=== PATIENT | female | born 2000 | race African-American/Black ===

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

== ENCOUNTER 2021-01-18 07:35 | Emergency (ER) | payer OTHER ==
[~2021-01-18] VITALS: Ht 165.1 cm; Wt 86.1 kg
[~2021-01-18 07:35] MED LIST changes: +ZOFR4TAB16 PO
[2021-01-18] MEDS ORDERED: LORazepam 2 MG/ML VIAL IV STA (08:18)
[2021-01-18] MEDS ORDERED: LORazepam 2 MG/ML VIAL As Ordered ONE (08:18)
[2021-01-18] MEDS ORDERED: levETIRAcetam INJection 1,500 MG in D5W 100 ML IV ONE (08:20)
[2021-01-18 08:25] LABS: BASO # 0.1 10^3/uL (0.0-0.2); BASO % 1.3 % (0.0-1.0); EOS # 0.1 10^3/uL (0.0-0.5); EOS % 2.6 % (0.0-3.0); HEMATOCRIT 42.3 % (36.0-47.0); HEMOGLOBIN 13.4 g/dl (12.0-15.5); LYMPH # 2.3 10^3/uL (1.5-5.0); LYMPH % 42.3 % (24.0-44.0); MEAN CORPUSCULAR HEMOGLOBIN 26.8 pg (27.0-33.0); MEAN CORPUSCULAR HGB CONC 31.7 g/dl (32.0-36.5); MEAN CORPUSCULAR VOLUME 84.6 fl (80.0-96.0); MONO # 0.4 10^3/uL (0.0-0.8); MONO % 7.5 % (2.0-8.0); NEUTROPHILS # 2.5 10^3/uL (1.5-8.5); NEUTROPHILS % 46.1 % (36.0-66.0); PLATELET COUNT, AUTOMATED 347 10^3/uL (150-450); WHITE BLOOD COUNT 5.3 10^3/uL (4.0-10.0)
[2021-01-18 09:02] LABS: ALBUMIN 3.8 GM/DL (3.2-5.2); ALT/SGPT 173 U/L (12-78); BILIRUBIN,DIRECT < 0.1 MG/DL (0.0-0.2); BILIRUBIN,TOTAL 0.1 MG/DL (0.2-1.0); SALICYLATE LEVEL < 1.7 MG/DL (5.0-30.0); TOTAL PROTEIN 7.5 GM/DL (6.4-8.2)
[2021-01-18 09:03] LABS: ACETAMINOPHEN LEVEL < 2.0 UG/ML (10.0-30.0); ETHYL ALCOHOL (ETHANOL) < 0.003 % (0.000-0.010)
--- NOTE | 2021-01-18 09:06 | REP ---
INDICATION: seizure COMPARISON: None. TECHNIQUE: Axial noncontrast images from the skull base to the vertex with coronal reformations. This CT examination was performed using the following dose reduction techniques: Automated exposure control, adjustment of mA and/or kv according to the patient's size, and use of iterative reconstruction technique. FINDINGS: The ventricles, sulci, and cisterns are normal in position and appearance. Cortes-white differentiation is maintained. No acute intracranial hemorrhage, mass/mass effect, pathology or trauma/injury. No evidence for acute infarction. No extra-axial fluid collection. Calvarium is intact. Paranasal sinuses and mastoid air cells are clear. IMPRESSION: Normal noncontrast head CT. No evidence for acute intracranial pathology or trauma/injury. <Electronically signed by Scott Tang > 01/18/21 0902
[2021-01-18 09:35] LABS: AMPHETAMINES LEVEL URINE NEGATIVE (NEGATIVE); BARBITURATES URINE NEGATIVE (NEGATIVE); BENZODIAZEPINES URINE NEGATIVE (NEGATIVE); CANNABINOIDS URINE NEGATIVE (NEGATIVE); COCAINE METABOLITE URINE NEGATIVE (NEGATIVE); METHADONE URINE NEGATIVE (NEGATIVE); OPIATES URINE NEGATIVE (NEGATIVE); PHENCYCLIDINE URINE NEGATIVE (NEGATIVE)
--- NOTE | 2021-01-18 09:58 | REP ---
INDICATION: elev lft COMPARISON: None. TECHNIQUE: Real time augustine scale ultrasound examination using curved array transducer. FINDINGS: Liver is normal in contour, size, and echogenicity without focal hepatic lesions identified. Pancreas is incompletely evaluated due to interposed bowel gas. The gallbladder is normal and without gallstones, wall thickening, or pericholecystic fluid. No biliary ductal dilatation is appreciated and the common bile duct measures 3 mm diameter. Right kidney is normal in reniform shape without hydronephrosis and measures 10 x 9 x 6.7 x 4.0 cm. No ascites in the visualized right upper quadrant. IMPRESSION: Normal limited right upper quadrant ultrasound <Electronically signed by Scott Tang > 01/18/21 0979
[2021-01-18] MEDS ORDERED: NS 1,000 ML IV ONE (12:45)
[2021-01-18 15:14] VITALS: BP 121/79
[2021-01-18] MEDS ORDERED: KEPP1TAB PO (15:19)
[2021-01-19] MEDS ORDERED: MIDOTAB PO (14:56)
[2021-01-19] MEDS ORDERED: MIRE1IUD PV (14:56)
[2021-01-19] MEDS ORDERED: KEPP1TAB PO (14:57)
--- NOTE | 2021-01-19 20:31 | ECGEPIP ---
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
== END 2021-01-18 15:32 | disposition home or self-care (01) ==
LOC: EDBD 07:35 → M ED 07:35
DX: R56.9 Unspecified convulsions (principal)
CPT/HCPCS: 70450; 76705; 80047; 80076; 80143; 80307; 82077; 84443; 84702; 85025; 93005; 93041; 96361; 96374; 96375; 99285; J1953; J2060

== ENCOUNTER 2021-01-19 12:24 | Inpatient (IN) | payer OTHER ==
[~2021-01-19] VITALS: Ht 165.1 cm; Wt 75.6 kg
[~2021-01-19 12:24] MED LIST changes: +KEPP1TAB PO
[2021-01-19 13:34] LABS: BASO # 0.1 10^3/uL (0.0-0.2); BASO % 1.1 % (0.0-1.0); EOS # 0.1 10^3/uL (0.0-0.5); EOS % 1.9 % (0.0-3.0); HEMATOCRIT 42.7 % (36.0-47.0); HEMOGLOBIN 13.3 g/dl (12.0-15.5); LYMPH # 1.9 10^3/uL (1.5-5.0); LYMPH % 36.3 % (24.0-44.0); MEAN CORPUSCULAR HEMOGLOBIN 26.4 pg (27.0-33.0); MEAN CORPUSCULAR HGB CONC 31.1 g/dl (32.0-36.5); MEAN CORPUSCULAR VOLUME 84.9 fl (80.0-96.0); MONO # 0.5 10^3/uL (0.0-0.8); MONO % 9.4 % (2.0-8.0); NEUTROPHILS # 2.7 10^3/uL (1.5-8.5); NEUTROPHILS % 51.1 % (36.0-66.0); PLATELET COUNT, AUTOMATED 295 10^3/uL (150-450); RED BLOOD COUNT 5.03 10^6/uL (4.00-5.40); WHITE BLOOD COUNT 5.2 10^3/uL (4.0-10.0)
[2021-01-19 14:01] LABS: ALBUMIN 3.8 GM/DL (3.2-5.2); ALT/SGPT 158 U/L (12-78); BILIRUBIN,TOTAL 0.2 MG/DL (0.2-1.0); BLOOD UREA NITROGEN 10 MG/DL (7-18); CALCIUM LEVEL 9.5 MG/DL (8.5-10.1); CARBON DIOXIDE LEVEL 24 MEQ/L (21-32); CHLORIDE LEVEL 109 MEQ/L (98-107); CREATININE FOR GFR 0.76 MG/DL (0.55-1.30); GLUCOSE, FASTING 96 MG/DL (70-100); POTASSIUM SERUM 3.8 MEQ/L (3.5-5.1); SODIUM LEVEL 139 MEQ/L (136-145); TOTAL PROTEIN 7.3 GM/DL (6.4-8.2)
--- NOTE | 2021-01-19 14:04 | REP ---
INDICATION: seizure vs syncpoep COMPARISON: 01/18/2021 TECHNIQUE: Axial noncontrast images from the skull base to the vertex with coronal reformations. This CT examination was performed using the following dose reduction techniques: Automated exposure control, adjustment of mA and/or kv according to the patient's size, and use of iterative reconstruction technique. FINDINGS: The ventricles, sulci, and cisterns are normal in position and appearance. Cortes-white differentiation is maintained. No acute intracranial hemorrhage, mass/mass effect, pathology or trauma/injury. No evidence for acute infarction. No extra-axial fluid collection. Calvarium is intact. Paranasal sinuses and mastoid air cells are clear. IMPRESSION: Normal noncontrast head CT. No evidence for acute intracranial pathology or trauma/injury. <Electronically signed by Scott Tang > 01/19/21 1400
[2021-01-19 14:06] LABS: AMPHETAMINES LEVEL URINE NEGATIVE (NEGATIVE); BARBITURATES URINE NEGATIVE (NEGATIVE); BENZODIAZEPINES URINE NEGATIVE (NEGATIVE); CANNABINOIDS URINE NEGATIVE (NEGATIVE); COCAINE METABOLITE URINE NEGATIVE (NEGATIVE); METHADONE URINE NEGATIVE (NEGATIVE); OPIATES URINE NEGATIVE (NEGATIVE); PHENCYCLIDINE URINE NEGATIVE (NEGATIVE)
[2021-01-19] MEDS ORDERED: MIDOTAB PO (14:56)
[2021-01-19] MEDS ORDERED: MIRE1IUD PV (14:56)
[2021-01-19] MEDS ORDERED: KEPP1TAB PO (14:57)
[2021-01-19 15:08] LABS: PROLACTIN 14.1 NG/ML
[2021-01-19] MEDS ORDERED: ACETAMINOPHEN 500 MG TAB PO PRN (15:25)
[2021-01-19 15:47] LABS: RSV AMPLIFICATION NEGATIVE (NEGATIVE)
[2021-01-19 16:28] LABS: LDH LACTATE DEHYDROGENASE 217 U/L (84-246)
[2021-01-19] MEDS ORDERED: ONDANSETRON 4MG/2ML VIAL IV PRN (17:25)
--- NOTE | 2021-01-19 17:41 | HPEPDOC ---
[facility] Medical History & Physical Date of Admission Jan 19, 2021 Date of Service: Jan 19, 2021 Attending Physician: Antionette Chand MD History and Physical CHIEF COMPLAINT: Seizure HISTORY OF PRESENT ILLNESS: Patient is a 20-year-old female with past medical history of questionable seizures diagnosed 01/18/2021 who returns to [facility] emergency room with questionable seizure-like activity from home. The patient was seen just in our ER on 01/18/2021 for questionable generalized seizure and sent home with Keppra by mouth twice a day. The patient states she went home and took her Keppra dose last evening. This morning the patient states she felt lightheaded and dizzy and had increased weakness. Her boyfriend said she dropped back onto the bed. He described her as having shaking all over, unresponsive to him along with her eyes rolling into the back of her head. There was no documented loss of bowel or bladder, increased confusion when she awoke 3 minutes later, tongue biting. The patient came to the emergency room to be further evaluated. In the emergency room the patient would not making the ER provider. There was a high suspicion for pseudoseizure today as well as 01/18/2021. The patieNT had a witnessed event in front of the ER provider today and when the ER provider pulled back on her fingernails she withdrew her with pain and glared at the ER provider, she would not talk to her at all. The patient was sent for CT scan which was ultimately negative but then she had episode with her eyes rolling back into her head for less than 1 minutes. The ER provider came and again tested her fingernails she withdrew her hand. UDS was negative, labs are unremarkable aside from some mild transaminitis. On my exam in the emergency room the patient rolled her eyes the back of the head, when attempted to move her hand above her head every time on both sides, the patient would drop down to the side without hitting her face. She had no post ictal episodes and responded to me almost immediately. I asked her if she was doing this for attention and I also asked if she was going through a lot of stress at home. Her significant other at the bedside said yes she was. The case was discussed with Dr. Khan and was the neurologist that spoke with the ER provider 01/18/21 as well. He was high suspicious for pseudoseizures, possibly malingering as he had said that after her discharge from the ER 01/18/21 the patient had called his office requesting a out of work notice for several days She had decided to leave AGAINST MEDICAL ADVICE after I had seen her on 01/19/2021 but later changed her mind to be admitted. The patient will be admitted for seizure versus pseudoseizures requiring additional workup. REVIEW OF SYSTEMS: Neg except mentioned above PAST MEDICAL HISTORY: endometriosis seizure vs. pseudoseizure PAST SURGICAL HISTORY: None FAMILY HISTORY: Father: ERIN. alive Mother: DM, HTN. Alive SOCIAL HISTORY: Denies smoking, alcohol or drug use. 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 Follows with OB clinic only. She is a full code. ALLERGIES: Please see below. HOME MEDICATIONS: Please see below. PHYSICAL EXAMINATION: VS: Please see below CONSTITUTIONAL: No acute distress, resting comfortably, AAO x 3 EYES: PERRLA, EOM intact HENT, MOUTH: Normocephalic, atraumatic, moist mucous membranes NECK: SUPPLE, no JVD, no lymphadenopathy, no carotid bruit CV: Regular rate and rhythm, S1S2 normal, no murmurs/rubs/gallops RESPIRATORY: Clear to auscultation bilaterally, no rales/rhonchi/wheezes GI: BS positive in 4 quadrants, soft, nontender, nondistended, no rebound or guarding, no organomegaly : Deferred MUSCULOSKELETAL: Normal ROM. No cyanosis, clubbing, swelling, joint deformity, extremity edema INTEGUMENTARY: Intact, no rashes, no lesions, no erythema NEUROLOGIC: Cranial Nerves II-XII are intact, no focal deficits PSYCHIATRIC: Flat LABORATORY DATA: Please see below IMAGING: CT head: Normal noncontrast head CT. No evidence for acute intracranial pathology or trauma/injury. F/u EEG ASSESSMENT: 20-year-old female with past medical history of endometriosis, questionable seizures diagnosed 01/18/2021 admitted for seizure disorder vs. pseudoseizures. . PLAN: Seizures vs. pseudoseizure -No documented history prior to 01/18/21 -? pseudoseizure as exams during seizures not traditional with seizure behaviors, no post-ictal phase, withdrawls from pain with seizures, does not allow hand/arm to fall on face on all evaluations during these episodes-instead falls to side -CT head neg -States to have taken keppra she was discharged with on 01/18/21 -Ordered EEG, discussed case with neurology who was also suspicious of psych cause/malingering -Will order neuro checks, seizure precautions, EEG -Keppra BID -If suspicion remains for pseudoseizure or w/u neg, psych consult to be obtained Endometriosis -F/u o/p DVT px -Teds, SCDs since patient states she currently bleeds daily vaginally DISPOSITION: Admitted under observation status. Plan is discharge home when medically improved. Consider psych consult. Vital Signs Vital Signs Date Time Temp Pulse Resp B/P (MAP) Pulse Ox O2 Delivery O2 Flow Rate FiO2 01/19/21 15:54 68 100 01/19/21 15:45 117/68 (84) 01/19/21 12:39 97.8 14 Laboratory Data Labs 24H Laboratory Tests 2 01/19/21 12:55: Immature Granulocyte % (Auto) 0.2, Neutrophils (%) (Auto) 51.1, Lymphocytes (%) (Auto) 36.3, Monocytes (%) (Auto) 9.4H, Eosinophils (%) (Auto) 1.9, Basophils (%) (Auto) 1.1H, Neutrophils # (Auto) 2.7, Lymphocytes # (Auto) 1.9, Monocytes # (Auto) 0.5, Eosinophils # (Auto) 0.1, Basophils # (Auto) 0.1, Nucleated Red Blood Cells % (auto) 0.0, Anion Gap 6L, Calcium Level 9.5, Total Bilirubin 0.2#, Aspartate Amino Transf (AST/SGOT) 64H, Alanine Aminotransferase (ALT/SGPT) 158H, Alkaline Phosphatase 118H, Lactate Dehydrogenase 217, Total Protein 7.3, Albumin 3.8, Albumin/Globulin Ratio 1.1L, Prolactin 14.1, Urine Opiates Screen NEGATIVE, Urine Methadone Screen NEGATIVE, Urine Barbiturates Screen NEGATIVE, Urine Phencyclidine Screen NEGATIVE, Urine Amphetamines Screen NEGATIVE, Urine Benzodiazepines Screen NEGATIVE, Urine Cocaine Metabolite Screen NEGATIVE, Urine Cannabinoids Screen NEGATIVE 01/19/21 13:02: POC Beta HCG, Quantitative < 5.0 01/19/21 14:41: Coronavirus (COVID-19)(PCR) NEGATIVE, Influenza Type A (RT-PCR) NEGATIVE, Influenza Type B (RT-PCR) NEGATIVE, Respiratory Syncytial Virus (PCR) NEGATIVE CBC/BMP Laboratory Tests 01/19/21 12:55 Home Medications Scheduled Levetiracetam (Keppra) 500 Mg Tablet, 500 MG PO BID Levonorgestrel (Mirena) 1 Each Iud, 1 IUD PV ASDIRECTED Scheduled PRN Acetaminophen/Pyrilamine/Caff (Midol Caplet) 1 Each Tablet, 1 EACH PO for PAIN Allergies Coded Allergies: No Known Allergies (Verified Allergy, Unknown, 01/19/21) A-FIB/CHADSVASC A-FIB History Current/History of A-Fib/PAF?: No Current PO Anticoag Therapy: No Age/Risk Factor Scoring CHADSVASC: CHADSVASC Response (Comments) Value Age Risk Factor Age < 65 years old 0 Gender Risk Factor Female 1 Hx of CHF No 0 Hx of HTN No 0 Hx of Stroke/TIA/or VTE No 0 Hx of Diabetes No 0 Hx of Vascular Disease No 0 Total 1 Treatment Treatment ordered: Other Other anticoagulant ordered: scd Antionette Chand MD Jan 19, 2021 17:41
[2021-01-19 18:02] VITALS: BP 130/78
[2021-01-19 18:10] LABS: PROTHROMBIN TIME 13.4 SECONDS (12.5-14.3)
[2021-01-19 18:11] LABS: PARTIAL THROMBOPLASTIN TIME 27.6 SECONDS (24.2-38.5)
[2021-01-19] MEDS: levETIRAcetam 250MG TABLET (KEPPRA) PO SCH (20:43)
--- NOTE | 2021-01-19 20:57 | ECGEPIP ---
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
[2021-01-19] MEDS ORDERED: levETIRAcetam 250MG TABLET (KEPPRA) PO SCH (21:00)
[2021-01-19 22:00] VITALS: BP 124/66
[2021-01-20] MEDS ORDERED: PERCOCET 5MG/325MG TAB PO ONE (03:15)
[2021-01-20] MEDS ORDERED: IBUPROFEN 600MG TAB PO ONE (03:45)
[2021-01-20 06:00] VITALS: BP 120/66
[2021-01-20 06:00] LABS: HEMATOCRIT 41.5 % (36.0-47.0); HEMOGLOBIN 13.3 g/dl (12.0-15.5); MEAN CORPUSCULAR HEMOGLOBIN 26.7 pg (27.0-33.0); MEAN CORPUSCULAR VOLUME 83.2 fl (80.0-96.0); PLATELET COUNT, AUTOMATED 356 10^3/uL (150-450); RED BLOOD COUNT 4.99 10^6/uL (4.00-5.40); WHITE BLOOD COUNT 6.9 10^3/uL (4.0-10.0)
[2021-01-20 06:32] LABS: ALBUMIN 3.8 GM/DL (3.2-5.2); ALT/SGPT 133 U/L (12-78); BILIRUBIN,TOTAL 0.3 MG/DL (0.2-1.0); BLOOD UREA NITROGEN 13 MG/DL (7-18); CALCIUM LEVEL 9.4 MG/DL (8.5-10.1); CARBON DIOXIDE LEVEL 25 MEQ/L (21-32); CHLORIDE LEVEL 107 MEQ/L (98-107); CREATININE FOR GFR 0.76 MG/DL (0.55-1.30); GLUCOSE, FASTING 95 MG/DL (70-100); POTASSIUM SERUM 4.3 MEQ/L (3.5-5.1); SODIUM LEVEL 139 MEQ/L (136-145); TOTAL PROTEIN 7.3 GM/DL (6.4-8.2)
[2021-01-20] MEDS: levETIRAcetam 250MG TABLET (KEPPRA) PO SCH (08:55)
[2021-01-20] MEDS ORDERED: ENOXAPARIN 40MG/0.4ML SYRINGE (J1650 PER 10MG) SC SCH ×2 (09:00)
[2021-01-20 14:30] VITALS: BP 129/79
[2021-01-20 14:35] VITALS: BP 127/78
[2021-01-20 14:40] VITALS: BP 125/74
--- NOTE | 2021-01-20 15:03 | DS.PDOC ---
Discharge Summary General Date of Admission Jan 19, 2021 at 17:22 Date of Discharge 01/20/21 Attending Physician: Antionette Chand MD Discharge Summary HISTORY OF PRESENT ILLNESS: Patient is a 20-year-old female with past medical history of questionable seizures diagnosed 01/18/2021 who returns to [facility] emergency room with questionable seizure-like activity from home. The patient was seen just in our ER on 01/18/2021 for questionable generalized seizure and sent home with Keppra by mouth twice a day. The patient states she went home and took her Keppra dose last evening. This morning the patient states she felt lightheaded and dizzy and had increased weakness. Her boyfriend said she dropped back onto the bed. He described her as having shaking all over, unresponsive to him along with her eyes rolling into the back of her head. There was no documented loss of bowel or bladder, increased confusion when she awoke 3 minutes later, tongue biting. The patient came to the emergency room to be further evaluated. In the emergency room the patient would not making the ER provider. There was a high suspicion for pseudoseizure today as well as 01/18/2021. The patieNT had a witnessed event in front of the ER provider today and when the ER provider pulled back on her fingernails she withdrew her with pain and glared at the ER provider, she would not talk to her at all. The patient was sent for CT scan which was ultimately negative but then she had episode with her eyes rolling back into her head for less than 1 minutes. The ER provider came and again tested her fingernails she withdrew her hand. UDS was negative, labs are unremarkable aside from some mild transaminitis. On my exam in the emergency room the patient rolled her eyes the back of the head, when attempted to move her hand above her head every time on both sides, the patient would drop down to the side without hitting her face. She had no post ictal episodes and responded to me almost immediately. I asked her if she was doing this for attention and I also asked if she was going through a lot of stress at home. Her significant other at the bedside said yes she was. The case was discussed with Dr. Khan and was the neurologist that spoke with the ER provider 01/18/21 as well. He was high suspicious for pseudoseizures, possibly malingering as he had said that after her discharge from the ER 01/18/21 the patient had called his office requesting a out of work notice for several days She had decided to leave AGAINST MEDICAL ADVICE after I had seen her on 01/19/2021 but later changed her mind to be admitted. The patient will be admitted for seizure versus pseudoseizures requiring additional workup. HOSPITAL COURSE: Patient complained of some dizziness in the morning on 01/20/2021. She was ambulated without any issues and orthostatics were negative. EEG was performed and will likely not be red for several days. Decision was made to discharge home with follow-up with neurology on Keppra twice a day at prior dose. At the time of discharge there was no complaints of chest pain, increased shortness of breath, nausea, vomiting. REVIEW OF SYSTEMS: Neg except mentioned above PAST MEDICAL HISTORY: endometriosis seizure vs. pseudoseizure PAST SURGICAL HISTORY: None FAMILY HISTORY: Father: ERIN. alive Mother: DM, HTN. Alive SOCIAL HISTORY: Denies smoking, alcohol or drug use. 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 Follows with OB clinic only. She is a full code. ALLERGIES: Please see below. HOME MEDICATIONS: Please see below. PHYSICAL EXAMINATION: VS: Please see below CONSTITUTIONAL: No acute distress, resting comfortably, AAO x 3 EYES: PERRLA, EOM intact HENT, MOUTH: Normocephalic, atraumatic, moist mucous membranes NECK: SUPPLE, no JVD, no lymphadenopathy, no carotid bruit CV: Regular rate and rhythm, S1S2 normal, no murmurs/rubs/gallops RESPIRATORY: Clear to auscultation bilaterally, no rales/rhonchi/wheezes GI: BS positive in 4 quadrants, soft, nontender, nondistended, no rebound or guarding, no organomegaly : Deferred MUSCULOSKELETAL: Normal ROM. No cyanosis, clubbing, swelling, joint deformity, extremity edema INTEGUMENTARY: Intact, no rashes, no lesions, no erythema NEUROLOGIC: Cranial Nerves II-XII are intact, no focal deficits PSYCHIATRIC: Flat LABORATORY DATA: Please see below IMAGING: CT head: Normal noncontrast head CT. No evidence for acute intracranial pathology or trauma/injury. F/u EEG as o/p ASSESSMENT: 20-year-old female with past medical history of endometriosis, questionable seizures diagnosed 01/18/2021 admitted for seizure disorder vs. pseudoseizures. . PLAN: Seizures vs. pseudoseizure -No seizure activity overnight, neurologically intact -No documented history prior to 01/18/21 -? pseudoseizure as exams during seizures not traditional with seizure behaviors, no post-ictal phase, withdrawls from pain with seizures, does not allow hand/arm to fall on face on all evaluations during these episodes-instead falls to side -CT head neg -F/u EEG as o/p, has new patient appt with neurology in [place] already scheduled. -Keppra BID -If suspicion remains for pseudoseizure or w/u neg, psych consult recommended Endometriosis -F/u o/p DISPOSITION: Discharged home today to f/u with neurology as o/p TIME SPENT ON DISCHARGE: 35 minutes. Vital Signs/I&Os Vital Signs Date Time Temp Pulse Resp B/P (MAP) Pulse Ox O2 Delivery O2 Flow Rate FiO2 01/20/21 14:40 96 125/74 (91) 01/20/21 06:00 98.6 18 98 01/19/21 18:02 Room Air I&O- Last 24 Hours up to 6 AM 01/20/21 06:00 Intake Total 960 ml Output Total 500 ml Balance 460 ml Laboratory Data Labs 24H Laboratory Tests 2 01/19/21 17:42: Prothrombin Time 13.4, Prothromb Time International Ratio 1.00, Activated Partial Thromboplast Time 27.6 01/20/21 05:36: Nucleated Red Blood Cells % (auto) 0.0, Anion Gap 7L, Calcium Level 9.4, Total Bilirubin 0.3, Aspartate Amino Transf (AST/SGOT) 43H, Alanine Aminotransferase (ALT/SGPT) 133H, Alkaline Phosphatase 121H, Total Protein 7.3, Albumin 3.8, Albumin/Globulin Ratio 1.1L CBC/BMP Laboratory Tests 01/20/21 05:36 Discharge Medications Scheduled Levetiracetam (Keppra) 500 Mg Tablet, 500 MG PO BID, (Reported) Levonorgestrel (Mirena) 1 Each Iud, 1 IUD PV ASDIRECTED, (Reported) Scheduled PRN Acetaminophen/Pyrilamine/Caff (Midol Caplet) 1 Each Tablet, 1 EACH PO for PAIN, (Reported) Allergies Coded Allergies: No Known Allergies (Verified Allergy, Unknown, 01/19/21) Antionette Chand MD Jan 20, 2021 15:03
--- NOTE | 2021-01-21 17:20 | EEG ---
ELECTROENCEPHALOGRAM DATE: 01/20/2021 DIAGNOSIS: Seizure versus pseudoseizure. EEG# [id number]. REFERRING PHYSICIAN: Antionette Chand M.D. HISTORY: Patient is a 20-year-old female who was admitted at [facility] due to episode of seizure-like activity. These episodes are not accompanied by postictal phase and typical seizure activity. The patient withdraws from pain during her episode. This EEG was done to rule out epileptic potential. She is currently taking Keppra, Lovenox, Percocet, etc. TECHNICAL DESCRIPTION: This digital EEG was recorded by 21-scalp, ear, and two EKG electrodes and was reviewed in bipolar and referential montages following reformatting in 10-20 international electrode placement system. INTERPRETATION: Patient was noted to be in awake and drowsy states during this EEG. Resting and awake background rhythm consisted of well-formed posterior dominant rhythm with anterior-posterior gradient comprising of 10 Hz alpha activity measuring 15-40 microvolts in amplitude, which was symmetric and reactive to eye opening. Attenuation of posterior dominant rhythm was seen during transition into drowsiness. Anteriorly low voltage and mixed frequency activity was noted. Stage 1 and 2 sleep were reviewed and were symmetric bilaterally. Hyperventilation could not be performed. Photic stimulation remained unremarkable. EKG revealed normal sinus rhythm. An episode was reported as twitching, which was only accompanied by electrode and motion artifact in the left posterior temporal region, especially T5 electrode without evolution or spread to surrounding region. No clear epileptiform abnormalities were seen. No relevant activity was noted. CONCLUSION: This EEG in awake, drowsy states, stage 1 and 2 sleep is within normal limits. An episode of body twitching was recorded, which was only accompanied by T5 electrode and motion artifact without any epileptiform abnormalities.
== END 2021-01-20 16:05 | disposition home or self-care (01) | DRG 101 ==
LOC: EDBD 12:24 → M ED 12:24 → M ED INP 12:25 → ENRESERV 15:58 → OBSVTOIN 17:22 → ENRESERVTM 17:42 → M MSPAV 18:02
PROVIDERS: ADMIT Internal Medicine; ATTEND Internal Medicine
DX: R56.9 Unspecified convulsions (principal); N80.9 Endometriosis, unspecified; Z20.822 Contact with and (suspected) exposure to COVID-19; Z79.899 Other long term (current) drug therapy

== ENCOUNTER 2021-02-08 06:11 | Day surgery (SDC) | payer OTHER ==
[~2021-02-08] VITALS: Ht 165.1 cm; Wt 76.2 kg
[~2021-02-08 06:11] MED LIST changes: +LR 1,000 ML IV ONE; +MIDOTAB PO; +MIRE1IUD PV
[2021-02-08 06:59] LABS: HEMATOCRIT 42.2 % (36.0-47.0); HEMOGLOBIN 13.4 g/dl (12.0-15.5); MEAN CORPUSCULAR HEMOGLOBIN 26.7 pg (27.0-33.0); MEAN CORPUSCULAR HGB CONC 31.8 g/dl (32.0-36.5); MEAN CORPUSCULAR VOLUME 84.1 fl (80.0-96.0); PLATELET COUNT, AUTOMATED 282 10^3/uL (150-450); RED BLOOD COUNT 5.02 10^6/uL (4.00-5.40); WHITE BLOOD COUNT 5.1 10^3/uL (4.0-10.0)
[2021-02-08] MEDS ORDERED: BUPIVACAINE HCL 0.5% 30 ML VIAL As Ordered ONE (07:10)
[2021-02-08] MEDS ORDERED: propofoL 200 MG/20 ML VIAL As Ordered ONE (07:15)
[2021-02-08] MEDS ORDERED: ROCURONIUM BROMIDE 50 MG/5 ML VIAL As Ordered ONE ×2 (07:15→08:58)
[2021-02-08] MEDS ORDERED: fentaNYL 100 MCG/2 ML INJECTION (J3010) As Ordered ONE ×2 (07:15→08:15)
[2021-02-08] MEDS ORDERED: LIDOCAINE 2% 100MG/5ML SDV (FOR ANES.) As Ordered ONE ×2 (07:15→07:33)
[2021-02-08] MEDS ORDERED: MIDAZOLAM INJ 2MG/2ML VIAL (J2250 PER 1MG) As Ordered ONE (07:16)
[2021-02-08] MEDS ORDERED: ONDANSETRON 4MG/2ML VIAL As Ordered ONE (07:16)
[2021-02-08] MEDS ORDERED: dexameTHASONE 4 MG/ML 1ML VIAL (J1100 PER 1MG) As Ordered ONE (07:16)
[2021-02-08 07:22] LABS: HCG, SERUM QUALITATIVE NEGATIVE (NEGATIVE)
[2021-02-08] MEDS ORDERED: SUGAMMADEX SODIUM 500 MG/5 ML VIAL (BRIDION) As Ordered ONE ×2 (09:14→11:17)
[2021-02-08] MEDS ORDERED: KETOROLAC 60MG 2ML VIAL As Ordered ONE (09:14)
[2021-02-08] MEDS ORDERED: ACETAMINOPHEN 1000MG 100ML IV BTL (OFIRMEV) (J0131 PER 10MG) As Ordered ONE (09:19)
[2021-02-08] MEDS ORDERED: SILVER NITRATE APPLICATOR As Ordered ONE (09:23)
[2021-02-08] MEDS ORDERED: METOCLOPRAMIDE INJ 10MG/2ML VIAL (J2765 PER 1) As Ordered ONE (09:35)
[2021-02-08] MEDS ORDERED: ONDANSETRON 4MG/2ML VIAL IV PRN (10:05)
[2021-02-08] MEDS ORDERED: LR 1,000 ML IV SCH (10:05)
[2021-02-08] MEDS ORDERED: fentaNYL 100 MCG/2 ML INJECTION (J3010) IV PRN (10:05)
[2021-02-08] MEDS ORDERED: oxyCODONE 5MG TAB PO PRN (10:05)
[2021-02-08] MEDS ORDERED: HYDROMORPHONE HCL 0.5 MG/ 0.5 ML SYRINGE (J1170 PER 1) IV PRN (10:05)
[2021-02-08] MEDS ORDERED: PERCOCET 5MG/325MG TAB PO PRN (10:15)
[2021-02-08] MEDS ORDERED: KETOROLAC 30 MG/ML 1ML VIAL IV PRN (11:00)
--- NOTE | 2021-02-08 11:28 | RO ---
OPERATIVE NOTE DATE OF OPERATION: 02/08/2021 PREOPERATIVE DIAGNOSIS: Chronic pelvic pain, dysmenorrhea, and uncertain location of Mirena IUD. POSTOPERATIVE DIAGNOSIS: Severely retroverted uterus, stage 1 endometriosis. PROCEDURE: Diagnostic hysteroscopy, dilation and curettage, diagnostic laparoscopy SURGEON: Nate Vu DO [employer]LE [employer]OR OPERATOR: Dr. Reid ANESTHESIA: General. IV FLUIDS: 1200 mL LR. URINE OUTPUT: 400 mL via Hartley catheter. EBL: 5 mL. ANTIBIOTICS: None indicated. COMPLICATIONS: None. INDICATIONS FOR PROCEDURE: Cammy Neil is a 20-year-old female with a longstanding history of dysmenorrhea and chronic pelvic pain. She had a Mirena IUD placed in September, which improved her symptoms. However, she continued to have severe pelvic pain. She went to the ER for pelvic pain and it was noted on ultrasound that her IUD was not visualized. In addition, there was concern for endometrial hyperplasia versus uterine cavity polyp versus fibroid. In the office on exam the IUD strings were noted to be extremely short. Given her chronic pelvic pain, her ultrasound findings, and her clinical exam she was recommended for hysteroscopy and laparoscopy to which she agreed. DESCRIPTION OF PROCEDURE: The risks, benefits, indications and alternatives to the procedure were reviewed with the patient and informed consent was obtained. The patient was taken to the operating room where general anesthesia was obtained without difficulty. The patient was then placed in the lithotomy position using gel padded Tu stirrups. The patient's arms were then gently tucked to her sides with padding. The patient was prepped and draped in the usual sterile fashion. A hartley catheter was placed to drain the bladder. A surgical time out was then performed and the patient's identity and planned procedure were verified with the operative team. A sterile speculum was then placed in the patient's vagina and the cervix was visualized. A single toothed tenaculum was used to grasp the anterior lip of the cervix. There were no IUD strings seen protruding from the cervical os. The cervix was then gently serially dilated to a size 16 [place] with a Alf dilator. The uterus was noted to be severely retroverted. The hysteroscope was then primed. The hysteroscope was then advanced through the endocervical canal under direct visualization. There was some resistance at the internal cervical os and there was noted to be a small fibroid at this location. In addition, the uterus was noted to be severely retroverted. Ultimately, entry into the uterine cavity was successful. After distention of the uterus with warm saline, a systematic examination of the intrauterine cavity was performed. The intrauterine cavity appeared normal. The Mirena IUD was noted to be in perfect position within the uterine cavity. The tubal ostia were visualized bilaterally and appeared normal. There were no lesions, polyps or defects. Other than the small questionable fibroid at the internal cervical os and severely retroverted uterus, there were no abnormalities seen. The hysteroscope was then removed from the uterus. The fluid deficit was minimal. A gentle, sharp curettage was then performed and tissue obtained was sent to pathology for review. The single toothed tenaculum was then removed from the cervix. Gloves were then exchanged and attention was turned to the patient's abdomen where a 5 mm skin incision was made in the inferior aspect of the umbilicus after injection of Marcaine. A 5 mm trocar and sleeve were then carefully introduced into the peritoneal cavity under direct visualization at 90-degree angle while tenting up the abdominal wall. Intraperitoneal placement was confirmed under direct visualization and entry pressure was noted to be less than 5 mmHg. A pneumoperitoneum was obtained with several liters of CO2 gas. Upon entry into the peritoneal cavity, structures immediately below the incision were inspected and found to be free of injury. An additional trocar was then placed in the left lateral aspect of the abdominal wall after injection of marcaine. A survey of the patient's abdomen and pelvis was notable for a normal appearing liver, normal appearing stomach, and normal appearing appendix. The uterus, fallopian tubes and ovaries were normal in appearance. The uterus was noted to be severely retroverted. There were no lesions, defects or perforations at the uterus. The posterior cul-de-sac was inspected and found to have a small Tu-Masters window with a small degree of endometriosis. The uterosacral ligaments were normal. The anterior cul-de-sac was normal without evidence of endometriosis. The bilateral ovarian fossae were normal and found to be without evidence of endometriosis. Other than the small degree of endometriosis in the posterior cul-de-sac, the abdomen was normal. Endometriosis was noted to be Stage 1. The gas was then turned off and all CO2 was removed from the patient's abdomen. The patient was given three manual breaths to assist with desufflation of the abdomen. All ports were removed under direct visualization and no bleeding was seen from the trocar sites. The skin incisions were closed with 4-0 Monocryl suture and covered with Dermabond. Attention was then turned back below. The cervical tenaculum sites were made hemostatic with sticks of silver nitrate. The patient's Hartley catheter was then removed. All instruments were then removed from the patient's vagina. At the completion of the case, the sponge, instrument, and needle counts were correct x2. The patient tolerated the procedure well. She was cleansed and dried, taken out of lithotomy position, awoken from anesthesia, and taken to PACU in stable condition. NIRANJAN
--- NOTE | 2021-02-08 11:43 | RO ---
See other dictation. MTDD
[2021-02-08 12:20] VITALS: BP 122/68
== END 2021-02-08 12:25 | disposition home or self-care (01) ==
LOC: M SDC 06:11
PROVIDERS: ATTEND Obstetrics & Gynecology
DX: R10.2 Pelvic and perineal pain (principal); N94.6 Dysmenorrhea, unspecified; N85.4 Malposition of uterus; Z97.5 Presence of (intrauterine) contraceptive device; F41.9 Anxiety disorder, unspecified; F32.9 Major depressive disorder, single episode, unspecified; R56.9 Unspecified convulsions; Z79.899 Other long term (current) drug therapy
CPT/HCPCS: 36415; 58558; 84703; 85027; 86850; 86870; 86900; 86901; 88305; J0131; J1100; J1885; J2250; J2405; J2765; J3010

== ENCOUNTER 2021-03-10 10:23 | Emergency (ER) | payer OTHER ==
[~2021-03-10] VITALS: Ht 152.4 cm; Wt 79.1 kg
[~2021-03-10 10:23] MED LIST changes: -LR 1,000 ML IV ONE
[2021-03-10] MEDS ORDERED: predniSONE 20 MG TAB PO ONE (11:50)
[2021-03-10] MEDS ORDERED: FAMOTIDINE 20 MG TAB PO ONE (11:55)
[2021-03-10 12:25] LABS: BASO # 0.1 10^3/uL (0.0-0.2); EOS # 0.3 10^3/uL (0.0-0.5); EOS % 5.5 % (0.0-3.0); HEMATOCRIT 44.3 % (36.0-47.0); HEMOGLOBIN 14.2 g/dl (12.0-15.5); LYMPH # 2.1 10^3/uL (1.5-5.0); LYMPH % 33.9 % (24.0-44.0); MEAN CORPUSCULAR HEMOGLOBIN 26.9 pg (27.0-33.0); MEAN CORPUSCULAR HGB CONC 32.1 g/dl (32.0-36.5); MEAN CORPUSCULAR VOLUME 83.9 fl (80.0-96.0); MONO # 0.4 10^3/uL (0.0-0.8); MONO % 7.1 % (2.0-8.0); NEUTROPHILS # 3.2 10^3/uL (1.5-8.5); NEUTROPHILS % 52.2 % (36.0-66.0); PLATELET COUNT, AUTOMATED 352 10^3/uL (150-450); RED BLOOD COUNT 5.28 10^6/uL (4.00-5.40); WHITE BLOOD COUNT 6.1 10^3/uL (4.0-10.0)
[2021-03-10 12:58] LABS: ALBUMIN 4.3 GM/DL (3.2-5.2); ALT/SGPT 204 U/L (12-78); BILIRUBIN,DIRECT < 0.1 MG/DL (0.0-0.2); BILIRUBIN,TOTAL 0.3 MG/DL (0.2-1.0); BLOOD UREA NITROGEN 8 MG/DL (7-18); CALCIUM LEVEL 9.7 MG/DL (8.5-10.1); CARBON DIOXIDE LEVEL 28 MEQ/L (21-32); CHLORIDE LEVEL 105 MEQ/L (98-107); COMPLEMENT C4 16 MG/DL (10-40); CREATININE FOR GFR 0.73 MG/DL (0.55-1.30); GLUCOSE, FASTING 92 MG/DL (70-100); POTASSIUM SERUM 4.1 MEQ/L (3.5-5.1); SODIUM LEVEL 140 MEQ/L (136-145)
[2021-03-10 13:02] LABS: HCG, SERUM QUALITATIVE NEGATIVE (NEGATIVE)
[2021-03-10] MEDS ORDERED: VENTAER INH (13:23)
[2021-03-10] MEDS ORDERED: HYDR-3363 PO (13:23)
[2021-03-10] MEDS ORDERED: PRED20TA PO (13:23)
[2021-03-10 13:29] VITALS: BP 127/81
[2021-03-10 14:40] LABS: HEPATITIS B SURFACE ANTIGEN NEGATIVE (NEGATIVE)
[2021-03-10 15:08] LABS: HEPATITIS B CORE ANTIBODY IGM NEGATIVE (NEGATIVE)
[2021-03-10 15:09] LABS: HEPATITIS A ANTIBODY IGM NEGATIVE (NEGATIVE)
[2021-03-11 11:12] LABS: ANTINUCLEAR ANTIBODIES DIRECT Negative (Negative)
[2021-03-14 17:08] LABS: TRYPTASE 4.8 ug/L (2.2-13.2)
== END 2021-03-10 13:33 | disposition home or self-care (01) ==
LOC: M ED 10:23
DX: L50.9 Urticaria, unspecified (principal); R74.8 Abnormal levels of other serum enzymes
CPT/HCPCS: 36415; 80048; 80076; 83519; 84703; 85025; 86038; 86140; 86160; 86161; 86705; 86709; 86803; 87340; 99283; J7512

== ENCOUNTER 2021-04-10 14:03 | Emergency (ER) | payer OTHER ==
[~2021-04-10] VITALS: Ht 165.1 cm; Wt 77.3 kg
[~2021-04-10 14:03] MED LIST changes: +HYDR-3363 PO; +PRED20TA PO; +VENTAER INH
[2021-04-10 14:07] VITALS: BP 127/79
== END 2021-04-10 15:25 | disposition left against medical advice (07) ==
LOC: M ED 14:03
DX: Z53.29 Procedure and treatment not carried out because of patient's decision for other reasons (principal)

== ENCOUNTER → 2021-06-30 | Outpatient (CLI) | payer OTHER ==
--- NOTE | 2021-07-01 14:12 | REPVR ---
PROCEDURE INFORMATION: Exam: MR Lumbar Spine Without Contrast Exam date and time: 06/30/2021 6:57 PM Age: 20 years old Clinical indication: Low back pain; Additional info: Lbp TECHNIQUE: Imaging protocol: Multiplanar magnetic resonance images of the lumbar spine without intravenous contrast. COMPARISON: GALLBLADDER US 01/18/2021 9:40 AM FINDINGS: Vertebrae: No acute compression fracture is seen. Bone marrow signal is within normal limits. There is minimal retrolisthesis of L3 on L4, L4 on L5, and L5 on S1. Spinal cord: The conus medullaris terminates at the L1 level. There is no evidence of arachnoiditis or cauda equina compression. L1-L2: No significant disc disease. No significant spinal stenosis or neural foraminal narrowing. L2-L3: There is mild diffuse circumferential disc bulging and facet arthropathy. There is no significant spinal canal or neural foraminal stenosis. L3-L4: There is mild facet arthropathy. There is no significant spinal canal or neural foraminal stenosis. L4-L5: There is mild facet arthropathy. There is no significant spinal canal or neural foraminal stenosis. L5-S1: There is mild diffuse circumferential disc bulging and facet arthropathy. This is causing mild bilateral neural foraminal narrowing. There is no significant spinal canal stenosis. Soft tissues: Unremarkable. IMPRESSION: Mild degenerative changes of the lumbar spine as discussed above Electronically signed by: Ronni Elizabeth On 07/01/2021 14:11:45 PM
== END ==
LOC: M RAD 17:59
PROVIDERS: ATTEND Neurological Surgery
DX: M51.36 Other intervertebral disc degeneration, lumbar region (principal)

== ENCOUNTER 2021-10-21 22:20 | Emergency (ER) | payer OTHER ==
[~2021-10-21] VITALS: Ht 160 cm; Wt 204.0 kg
[2021-10-21 22:38] VITALS: BP 141/94
[2021-10-21] MEDS ORDERED: AMIT10TA7 (22:45)
[2021-10-21 23:03] LABS: HEMATOCRIT 42.9 % (36.0-47.0); HEMOGLOBIN 13.8 g/dl (12.0-15.5); MEAN CORPUSCULAR HEMOGLOBIN 27.3 pg (27.0-33.0); MEAN CORPUSCULAR HGB CONC 32.2 g/dl (32.0-36.5); PLATELET COUNT, AUTOMATED 297 10^3/uL (150-450); RED BLOOD COUNT 5.05 10^6/uL (4.00-5.40)
[2021-10-21] MEDS ORDERED: BOOSTRIX/ADACEL VACCINE (DIPHTH/PERTUSS/ACELL/TETANUS) 0.5ML SYR IM ONE (23:20)
[2021-10-21 23:29] LABS: HCG, SERUM QUALITATIVE NEGATIVE (NEGATIVE)
[2021-10-21 23:40] LABS: ACETAMINOPHEN LEVEL < 2.0 UG/ML (10.0-30.0); ALT/SGPT 59 U/L (12-78); AMPHETAMINES LEVEL URINE NEGATIVE (NEGATIVE); BARBITURATES URINE NEGATIVE (NEGATIVE); BENZODIAZEPINES URINE NEGATIVE (NEGATIVE); BILIRUBIN,DIRECT < 0.1 MG/DL (0.0-0.2); BILIRUBIN,TOTAL 0.2 MG/DL (0.2-1.0); BLOOD UREA NITROGEN 11 MG/DL (7-18); CANNABINOIDS URINE NEGATIVE (NEGATIVE); CARBON DIOXIDE LEVEL 27 MEQ/L (21-32); CHLORIDE LEVEL 108 MEQ/L (98-107); COCAINE METABOLITE URINE NEGATIVE (NEGATIVE); CREATININE FOR GFR 0.99 MG/DL (0.55-1.30); ETHYL ALCOHOL (ETHANOL) < 0.003 % (0.000-0.010); GLUCOSE, FASTING 105 MG/DL (70-100); METHADONE URINE NEGATIVE (NEGATIVE); OPIATES URINE NEGATIVE (NEGATIVE); PHENCYCLIDINE URINE NEGATIVE (NEGATIVE); POTASSIUM SERUM 4.2 MEQ/L (3.5-5.1); SALICYLATE LEVEL < 1.7 MG/DL (5.0-30.0); SODIUM LEVEL 139 MEQ/L (136-145); TOTAL PROTEIN 7.3 GM/DL (6.4-8.2)
[2021-10-21 23:43] LABS: RSV AMPLIFICATION NEGATIVE (NEGATIVE)
== END 2021-10-22 03:34 | disposition home or self-care (01) ==
LOC: M ED 22:20
DX: F32.A Depression, unspecified (principal); S60.512A Abrasion of left hand, initial encounter; X78.1XXA Intentional self-harm by knife, initial encounter; Y92.89 Other specified places as the place of occurrence of the external cause; Y93.89 Activity, other specified; Y99.8 Other external cause status; Q07.00 Arnold-Chiari syndrome without spina bifida or hydrocephalus; N80.9 Endometriosis, unspecified; Z79.899 Other long term (current) drug therapy

== ENCOUNTER → 2021-12-27 | Outpatient (CLI) | payer OTHER ==
[~2021-12-27] MED LIST changes: +AMIT10TA7
== END ==
LOC: M PLAIMG 14:02
PROVIDERS: ATTEND Neurological Surgery
DX: G93.5 Compression of brain (principal)